=== PATIENT | female | born 1985 | race Caucasian/White ===

== ENCOUNTER 2022-03-11 03:09 | Inpatient (IN) | payer OTHER ==
[~2022-03-11] VITALS: Ht 160 cm; Wt 120.4 kg
[2022-03-11 06:50] LABS: HEMOGLOBIN 9.4 gm/dl (12.3-15.3); RED BLOOD COUNT 4.3 M/UL (4.00-5.10); WHITE BLOOD COUNT 13.3 K/UL (4.5-11.0)
[2022-03-11] MEDS ORDERED: LINZESS290 MCG PO (10:23)
[2022-03-11] MEDS ORDERED: PREGABALIN100 MG PO (10:24)
[2022-03-11] MEDS ORDERED: TRAMADOL HCL50 MG PO (10:24)
[2022-03-11] MEDS ORDERED: VITAMIN D21250 MCG PO (10:25)
[2022-03-11] MEDS ORDERED: ELIQUIS 5 MG TAB5 MG PO (10:25)
[2022-03-11] MEDS ORDERED: OMEPRAZOLE40 MG PO (10:26)
[2022-03-11] MEDS ORDERED: MELATONIN5 M2 PO (10:26)
[2022-03-11] MEDS ORDERED: BUSPIRONE HCL10 MG PO (10:27)
[2022-03-11] MEDS ORDERED: DULOXETINE HCL30 MG PO (10:28)
[2022-03-11] MEDS ORDERED: CETIRIZINE HCL10 MG PO (10:28)
[2022-03-11] MEDS ORDERED: HYDROXYZINE PAM25 MG PO (10:29)
[2022-03-11] MEDS ORDERED: ESCITALOPRAM OX20 MG PO (10:29)
[2022-03-11] MEDS ORDERED: CRESTOR5 MG PO (10:31)
[2022-03-11] MEDS ORDERED: JANUVIA100 MG PO (10:31)
[2022-03-11] MEDS ORDERED: HYDROCODON-ACE1 EAC6 PO (10:35)
[2022-03-12 03:03] LABS: HEMOGLOBIN 8.5 gm/dl (12.3-15.3); RED BLOOD COUNT 3.92 M/UL (4.00-5.10); WHITE BLOOD COUNT 13.1 K/UL (4.5-11.0)
[2022-03-12 03:37] LABS: BUN/CREATININE RATIO 12 (0-10)
[2022-03-13 02:20] LABS: BUN/CREATININE RATIO 13 (0-10)
[2022-03-13] MEDS ORDERED: LOPRESSOR 25 MG25 MG PO (09:55)
[2022-03-13] MEDS ORDERED: LASIX20 MG PO (13:16)
[2022-03-13] MEDS ORDERED: K-TAB ER10 MEQ PO (13:16)
== END 2022-03-13 15:28 | disposition home or self-care (01) | DRG 176 ==
LOC: PROG CARE 03:09
PROVIDERS: Internal Medicine; ADMIT Internal Medicine
PROC: B24BZZZ Ultrasonography of Heart with Aorta (ICD-10-PCS; principal; 2022-03-11)
DX: I26.99 Other pulmonary embolism without acute cor pulmonale (principal); I48.92 Unspecified atrial flutter; Z68.42 Body mass index [BMI] 45.0-49.9, adult; R00.0 Tachycardia, unspecified; D50.9 Iron deficiency anemia, unspecified; E11.9 Type 2 diabetes mellitus without complications; Z20.822 Contact with and (suspected) exposure to COVID-19; F41.9 Anxiety disorder, unspecified; E66.9 Obesity, unspecified; M54.30 Sciatica, unspecified side; F17.200 Nicotine dependence, unspecified, uncomplicated; I11.0 Hypertensive heart disease with heart failure; M54.50 Low back pain, unspecified; I27.20 Pulmonary hypertension, unspecified; G47.33 Obstructive sleep apnea (adult) (pediatric); I50.9 Heart failure, unspecified; F31.9 Bipolar disorder, unspecified; G89.29 Other chronic pain; Z79.01 Long term (current) use of anticoagulants; Z79.899 Other long term (current) drug therapy; Z98.890 Other specified postprocedural states
CPT/HCPCS: ECHO; 36415; 80048; 81001; 82550; 82553; 82962; 83735; 83880; 84439; 84443; 84484; 85025; 85610; 85730; 86140; 93005; 93306; J1644; Q0177